=== PATIENT | male | born 1995 | race Hispanic/Latino ===

== ENCOUNTER 2018-10-01 20:17 | Emergency (ER) | payer OTHER ==
[~2018-10-01] VITALS: Ht 177.8 cm; Wt 92.3 kg
[2018-10-01 20:52] LABS: BASO % 0.6 % (0.0-1.0); EOS # 0.1 10^3/uL (0.0-0.50); EOS % 1.7 % (0.0-3.0); HEMATOCRIT 44.7 % (42.0-52.0); HEMOGLOBIN 15.6 g/dl (13.5-17.5); LYMPH # 2.9 10^3/uL (1.5-6.5); LYMPH % 40.9 % (24.0-44.0); MEAN CORPUSCULAR HEMOGLOBIN 33.1 pg (27.0-33.0); MEAN CORPUSCULAR HGB CONC 34.9 g/dl (32.0-36.5); MEAN CORPUSCULAR VOLUME 94.7 fl (80.0-96.0); MONO # 0.5 10^3/uL (0.0-0.8); MONO % 7.4 % (0.0-5.0); NEUTROPHILS # 3.4 10^3/uL (1.8-7.7); NEUTROPHILS % 48.8 % (36.0-66.0); PLATELET COUNT, AUTOMATED 206 10^3/uL (150-450); RED BLOOD COUNT 4.72 10^6/uL (4.30-6.10)
[2018-10-01 21:05] LABS: INR 1.02; PROTHROMBIN TIME 13.5 SECONDS (12.1-14.4)
[2018-10-01 21:06] LABS: PARTIAL THROMBOPLASTIN TIME 25.8 SECONDS (25.4-37.6)
[2018-10-01 21:13] LABS: D-DIMER QUANT < 270 ng/ml (<500)
[2018-10-01 21:30] LABS: ALT/SGPT 34 U/L (12-78); BILIRUBIN,DIRECT 0.2 MG/DL (0.0-0.2); BILIRUBIN,TOTAL 0.5 MG/DL (0.2-1.0); BLOOD UREA NITROGEN 11 MG/DL (7-18); CALCIUM LEVEL 9.5 MG/DL (8.5-10.1); CARBON DIOXIDE LEVEL 29 MEQ/L (21-32); CHLORIDE LEVEL 109 MEQ/L (98-107); CK-MB VALUE MASS 1.3 NG/ML (<3.6); CPK CREATINE PHOSPHOKINASE 183 U/L (39-308); CREATININE FOR GFR 0.89 MG/DL (0.70-1.30); FREE T4 0.82 NG/DL (0.76-1.46); GLOMERULAR FILTRATION RATE > 60.0 (>60); GLUCOSE, FASTING 89 MG/DL (70-100); MB/CK RELATIVE INDEX 0.71 (< OR =4); POTASSIUM SERUM 4.2 MEQ/L (3.5-5.1); SODIUM LEVEL 143 MEQ/L (136-145); TOTAL PROTEIN 7.5 GM/DL (6.4-8.2); TROPONIN I < 0.02 NG/ML (< 0.10)
--- NOTE | 2018-10-01 23:34 | REPVR ---
EXAM: XR Chest, 2 Views EXAM DATE/TIME: 10/01/2018 9:44 PM CLINICAL HISTORY: 23 years old, male; Chest pain; Type not specified; Additional info: Cp TECHNIQUE: Imaging protocol: XR of the chest, 2 views. COMPARISON: No relevant prior studies available. FINDINGS: Lungs: Unremarkable. No consolidation. Pleural space: Unremarkable. No pleural effusion. No pneumothorax. Heart/Mediastinum: Unremarkable. No cardiomegaly. Bones/joints: Unremarkable. Other findings: Coils in the region of the ductus arteriosus. IMPRESSION: No acute findings. Electronically signed by: Garett Newby On 10/01/2018 23:33:28 PM
[2018-10-02 00:27] VITALS: BP 113/72
--- NOTE | 2018-10-02 05:52 | ECGEPIP ---
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
== END 2018-10-02 00:28 | disposition home or self-care (01) ==
LOC: M ED 20:17
DX: R00.2 Palpitations (principal); R06.02 Shortness of breath

== ENCOUNTER → 2020-03-27 | Outpatient (CLI) | payer SELFPAY | LOC: M LABSMTC 13:31 | PROVIDERS: ATTEND Pediatrics | DX: Z20.828 Contact with and (suspected) exposure to other viral communicable diseases (principal) ==